=== PATIENT | female | born 1995 | race Caucasian/White ===

== ENCOUNTER 2017-02-10 06:30 | Emergency (ER) | payer SELFPAY ==
[~2017-02-10] VITALS: Ht 154.9 cm; Wt 55.5 kg
[2017-02-10 06:30] VITALS: BP 113/65; PULSE 68; RESP 1; RESP 16; TEMP 98.7; O2SAT 100
[2017-02-10] MEDS ORDERED: IBUPROFEN 600 MG TAB PO ONE (07:15)
--- NOTE | 2017-02-10 07:26 | PD ---
HPI Chief Complaint: Chest Pain Time Seen by Provider: 07:09 Travel History International Travel<30 days: No Contact w/Intl Traveler<30days: No Traveled to known affect area: No History of Present Illness HPI 21 yo F c/o mid-anterior chest pain that radiates laterally toward each side with a sharp quality. It radiates to the back to the region of the midline spine. No dyspnea. Onset was while patient was asleep. No pleuritic or exertional component. Pt states she has hx panic attacks which are accompanied by chest pain, however, the pain is more of a pressure like pain with panic attacks. She is unaware of any potential cause for the chest pain based on activities of late. PFSH Past Medical History Diminished Hearing: No Immunizations Current: Yes ?: Not LMP: 01/29/17 Social History Alcohol Use: Yes (SOCIAL) Tobacco Use: Yes Substance Use: No Allergies-Medications (Allergen,Severity, Reaction): Coded Allergies: No Known Allergies (Verified , 02/24/15) Reported Meds & Prescriptions Reported Meds & Active Scripts Active Ibuprofen 600 Mg Tab 600 Mg PO Q8HR PRN Review of Systems Except as stated in HPI: all other systems reviewed are Neg Physical Exam Narrative GENERAL: 21 yo F, WNWD, NAD SKIN: Warm and dry. HEAD: Atraumatic. Normocephalic. EYES: Pupils equal and round. No scleral icterus. No injection or drainage. ENT: No nasal bleeding or discharge. Mucous membranes pink and moist. NECK: Trachea midline. No JVD. CARDIOVASCULAR: Regular rate and rhythm. RESPIRATORY: No accessory muscle use. Clear to auscultation. Breath sounds equal bilaterally. GASTROINTESTINAL: Abdomen soft, non-tender, nondistended. Hepatic and splenic margins not palpable. MUSCULOSKELETAL: Extremities without clubbing, cyanosis, or edema. No obvious deformities. NEUROLOGICAL: Awake and alert. No obvious cranial nerve deficits. Motor grossly within normal limits. Five out of 5 muscle strength in the arms and legs. Normal speech. PSYCHIATRIC: Appropriate mood and affect; insight and judgment normal. Data Data Last Documented VS Orders Orders Chest, Pa & Lat (02/10/17 07:10) Ibuprofen (Motrin) (02/10/17 07:15) Electrocardiogram (02/10/17 ) MDM Medical Decision Making Medical Screen Exam Complete: Yes Emergency Medical Condition: Yes Medical Record Reviewed: Yes Differential Diagnosis NSTEMI, unstable angina, coronary vasospasm, PE, PTX, aortic dissection, pericarditis, myocarditis, endocarditis, PNA, esophageal disease, aneurysm, musculoskeletal etiologies, anxiety, cocaine/sympathomimetic abuse Narrative Course Last 24 hours Impressions Chest X-Ray 02/10/17 0710 Signed Impressions: Service Date/Time: Friday, February 10, 2017 07:16 - CONCLUSION: No acute disease. Jamie Morrison MD EKG: sinus, rate 65, no ischemia, normal axis/intervals Motrin script. Return precautions discussed. Diagnosis Primary Impression: Chest pain Qualified Codes: R07.9 - Chest pain, unspecified Referrals: Primary Care Physician 2 days Additional Instructions: You have a choice when it comes to health care, and we are glad that you chose [facility]. Hopefully, we have met your expectations on today's visit. You are welcome to return to [facility] at any time, as we are committed to meeting the health care needs of our community. Med/Other Pt SpecificInfo: Prescription(s) given Scripts Ibuprofen (Ibuprofen) 600 Mg Tab 600 MG PO Q8HR Y for PAIN SCALE 6 TO 10, #20 TAB 0 Refills Prov: Alcides Sanchez MD 02/10/17 Disposition: 01 DISCHARGE HOME Condition: Stable Alcides Sanchez MD Feb 10, 2017 07:26
--- NOTE | 2017-02-10 07:32 | RADRPT ---
EXAM DATE/TIME: 02/10/2017 07:16 [facility] COMPARISON: No previous studies available for comparison. INDICATIONS : Sharp chest & back pain. MEDICAL HISTORY : None. SURGICAL HISTORY : None. ENCOUNTER: Initial ACUITY: 1 day PAIN SCORE: 6/10 LOCATION: chest FINDINGS: PA and lateral views of the chest demonstrate the lungs to be symmetrically aerated without evidence of mass, infiltrate or effusion. The cardiomediastinal contours are unremarkable. Osseous structure s are intact. CONCLUSION: No acute disease. Jamie Morrison MD on February 10, 2017 at 7:31 Board Certified Radiologist. This report was verified electronically.
[2017-02-10 07:48] VITALS: BP 93/60; PULSE 63; RESP 16; O2SAT 100
[2017-02-10] MEDS ORDERED: IBUP-232 PO (08:02)
--- NOTE | 2017-02-10 19:31 | EKG ---
Date Performed: 02/10/2017 Time Performed: 06:49:11 PTAGE: 21 years EKG: Sinus rhythm WITH SINUS ARRHYTHMIA NORMAL ECG PREVIOUS TRACING : 03/12/2006 12.22 Compared to prior tracing no significant change DOCTOR: Kwame Durant Interpretating Date/Time 02/10/2017 19:31:04
== END 2017-02-10 08:19 | disposition home or self-care (01) ==
LOC: PHED 06:30
DX: R07.9 Chest pain, unspecified (principal)
CPT/HCPCS: 71020; 93005; 99284